=== PATIENT | male | born 1955 | race Caucasian/White ===

== ENCOUNTER 2017-01-19 11:17 | Emergency (ER) | payer BC ==
--- NOTE | 2017-01-19 11:25 | EDM.PDOC ---
ED HPI GENERAL MEDICAL PROBLEM - General Stated Complaint: CHEST PAIN Time Seen by Provider: 01/19/17 11:17 Source of Information: Reports: Patient, Family History Limitations: Reports: No Limitations - History of Present Illness INITIAL COMMENTS - FREE TEXT/NARRATIVE: 62 y.o.w.m with a h/o CAD, S/P Stent placements, was transfered to the ED from the clinic dueto sudden onset of SSCP, diaphoresis and dizziness. Pt tooke one Tbl of 0.4 mg of NTG and the symptoms subsided. Pt was still mildly dizzy as he arrived here in the ed. Onset: Today, Sudden Onset Date: 01/19/17 Onset Time: 07:00 Duration: Improving Location: Reports: Chest Quality: Reports: Pressure Severity: Mild Worsens with: Reports: None Context: Reports: Other (at rest) - Related Data Allergies Allergy/AdvReac Type Severity Reaction Status Date / Time No Known Allergies Allergy Verified 01/19/17 11:28 Home Meds: Home Meds Acetaminophen [Tylenol Arthritis] 650 mg PO Q8H PRN 01/19/17 [History] Albuterol Sulfate [Proair Hfa] 8.5 gm IH Q4H PRN 01/19/17 [History] Aspirin 81 mg PO DAILY 01/19/17 [History] Ciprofloxacin HCl [Cipro] 500 mg PO BID 01/19/17 [History] Clopidogrel [Plavix] 75 mg PO DAILY 01/19/17 [History] Fluticasone/Salmeterol [Advair Diskus 100-50] 1 puff INH BID PRN 01/19/17 [ History] Isosorbide Mononitrate [Imdur] 30 mg PO DAILY 01/19/17 [History] Losartan [Cozaar] 50 mg PO DAILY 01/19/17 [History] Metoprolol Succinate [Toprol XL] 12.5 mg PO DAILY 01/19/17 [History] Naproxen Sodium [Aleve] 440 mg PO Q12H PRN 01/19/17 [History] Nitroglycerin 0.4 mg SL .Q5 MIN PRN 01/19/17 [History] Ranitidine HCl [Zantac] 300 mg PO BID PRN 01/19/17 [History] Ubidecarenone [Co Q-10] 100 mg PO BEDTIME 01/19/17 [History] ED ROS GENERAL - Review of Systems Review Of Systems: See Below Constitutional: Reports: No Symptoms HEENT: Reports: No Symptoms Respiratory: Reports: No Symptoms Cardiovascular: Reports: No Symptoms Endocrine: Reports: No Symptoms GI/Abdominal: Reports: No Symptoms : Reports: No Symptoms Musculoskeletal: Reports: No Symptoms Skin: Reports: No Symptoms Neurological: Reports: No Symptoms Psychiatric: Reports: No Symptoms Hematologic/Lymphatic: Reports: No Symptoms Immunologic: Reports: No Symptoms ED EXAM, GENERAL - Physical Exam Exam: See Below Exam Limited By: No Limitations General Appearance: Alert, WD/WN, No Apparent Distress Eye Exam: Bilateral Eye: Normal Inspection Ears: Normal External Exam Ear Exam: Bilateral Ear: Auricle Normal Nose: Normal Inspection, Normal Mucosa Throat/Mouth: Normal Inspection, Normal Lips Head: Atraumatic, Normocephalic Neck: Normal Inspection, Supple, Non-Tender Respiratory/Chest: No Respiratory Distress, Lungs Clear, Normal Breath Sounds Cardiovascular: Normal Peripheral Pulses, Regular Rate, Rhythm, No Edema Peripheral Pulses: 1+: Brachial (R), Radial (L) GI/Abdominal: Normal Bowel Sounds, Soft, Non-Tender (Male) Exam: Deferred Rectal (Males) Exam: Deferred Back Exam: Normal Inspection, Full Range of Motion Extremities: Normal Inspection, Normal Range of Motion, Non-Tender, Normal Capillary Refill Neurological: Alert, Oriented, CN II-XII Intact, Normal Cognition, Normal Gait Psychiatric: Normal Affect, Normal Mood Skin Exam: Warm, Dry, Intact, Normal Color, No Rash Lymphatic: No Adenopathy EKG INTERPRETATION EKG Date: 01/19/17 Time: 11:00 Rhythm: NSR Rate (Beats/Min): 62 [place]: Normal P-Wave: Present QRS: Normal ST-T: Normal QT: Normal Comparison: NA - No Prior EKG Course - Vital Signs Text/Narrative:: 62 y.o.w.m with a h/o CAD, S/P Stent placements, was transfered to the ED from the clinic dueto sudden onset of SSCP, diaphoresis and dizziness. Pt tooke one Tbl of 0.4 mg of NTG and the symptoms subsided. Pt was still mildly dizzy as he arrived here in the ed. orthostatics were neg here in the ed. Pt is physically active at work, every day. PE: Mild epigastyric tenderness. Imaging: CXR NAD Labs: NAD, Troponin: Neg D Dimer neg 1209 Consultation: Dr. Noriega Slabber,[facility]: Stress test before discharge. Pt refused a stress test. Impression: Chest pain, atypical Reeaxm: Pt remained pain free, is in his usual state of health. Pt refused Cardiac stress test, refused Cardiac Labs in 4 hours. Plan: Requested to be D/C'd to home with . Last Recorded V/S: Last Vital Signs Temp 36.6 C 01/19/17 11:20 Pulse Resp 01/19/17 12:15 BP 136/69 01/19/17 12:15 Pulse Ox 97 01/19/17 12:15 - Orders/Labs/Meds Labs: Laboratory Tests 01/19/17 01/19/17 01/19/17 Range/Units 11:34 11:34 11:34 WBC 8.2 (4.5-12.0) X10-3/uL RBC 5.22 (4.30-5.75) x10(6)uL Hgb 15.2 (11.5-15.5) g/dL Hct 44.2 (30.0-51.3) % MCV 84.7 (80-96) fL MCH 29.1 (27.7-33.6) pg MCHC 34.3 (32.2-35.4) g/dL RDW 13.1 (11.5-15.5) % Plt Count 270 (125-369) X10(3)uL MPV 6.7 L (7.4-10.4) fL Neut % (Auto) 70.6 (46-82) % Lymph % (Auto) 21.8 (13-37) % [place] % (Auto) 6.4 (4-12) % Eos % (Auto) 1 (1.0-5.0) % Baso % (Auto) 1 (0-2) % Neut # (Auto) 5.8 (1.6-8.3) # Lymph # (Auto) 1.8 (0.6-5.0) # [place] # (Auto) 0.5 (0.0-1.3) # Eos # (Auto) 0.1 (0.0-0.8) # Baso # (Auto) 0.0 (0.0-0.2) # PT (8.7-11.1) INR (0.89-1.13) D-Dimer, Quantitative < 100 L (100-400) ng/mL Sodium 135 (135-145) mmol/L Potassium 4.1 (3.5-5.3) mmol/L Chloride 102 (100-110) mmol/L Carbon Dioxide 26 (23-29) mmol/L BUN 14 (8-23) mg/dL Creatinine 0.9 (0.6-1.3) mg/dL Est Cr Clr Drug Dosing TNP Estimated GFR (MDRD) > 60 (>60) BUN/Creatinine Ratio 15.6 (9-20) Glucose 107 (80-116) mg/dL Calcium 8.8 (8.6-10.2) mg/dL Creatine Kinase 154 (60-160) IU/L Troponin I (0.02-0.06) NG/ML 01/19/17 01/19/17 Range/Units 11:34 11:34 WBC (4.5-12.0) X10-3/uL RBC (4.30-5.75) x10(6)uL Hgb (11.5-15.5) g/dL Hct (30.0-51.3) % MCV (80-96) fL MCH (27.7-33.6) pg MCHC (32.2-35.4) g/dL RDW (11.5-15.5) % Plt Count (125-369) X10(3)uL MPV (7.4-10.4) fL Neut % (Auto) (46-82) % Lymph % (Auto) (13-37) % [place] % (Auto) (4-12) % Eos % (Auto) (1.0-5.0) % Baso % (Auto) (0-2) % Neut # (Auto) (1.6-8.3) # Lymph # (Auto) (0.6-5.0) # [place]oughton # (Auto) (0.0-1.3) # Eos # (Auto) (0.0-0.8) # Baso # (Auto) (0.0-0.2) # PT 10.6 (8.7-11.1) INR 1.05 (0.89-1.13) D-Dimer, Quantitative (100-400) ng/mL Sodium (135-145) mmol/L Potassium (3.5-5.3) mmol/L Chloride (100-110) mmol/L Carbon Dioxide (23-29) mmol/L BUN (8-23) mg/dL Creatinine (0.6-1.3) mg/dL Est Cr Clr Drug Dosing Estimated GFR (MDRD) (>60) BUN/Creatinine Ratio (9-20) Glucose (80-116) mg/dL Calcium (8.6-10.2) mg/dL Creatine Kinase (60-160) IU/L Troponin I < 0.01 L (0.02-0.06) NG/ML Departure - Departure Time of Disposition: 12:27 Disposition: Home, Self-Care 01 Condition: Good Clinical Impression: Atypical chest pain Referrals: Yogi Cash MD [Primary Care Provider] - Forms: ED Department Discharge Additional Instructions: Please cont your meds, f/u with your PMD, come bacl if your symptoms get worse acutely.
--- NOTE | 2017-01-19 11:55 | CR ---
INDICATION: Chest pain. CHEST: Two AP upright portable views of the chest were obtained 01/19/2017. Overlying EKG leads are noted. The heart is normal in size and shape. A definite active infiltrate or effusion was not identified. IMPRESSION: No acute process. MTDD
[2017-01-19 13:35] VITALS: BP 136/69
== END 2017-01-19 12:35 | disposition home or self-care (01) ==
LOC: FB.ED 11:17
DX: R07.89 Other chest pain (principal); I25.10 Atherosclerotic heart disease of native coronary artery without angina pectoris; Z79.82 Long term (current) use of aspirin; Z79.02 Long term (current) use of antithrombotics/antiplatelets; Z79.899 Other long term (current) drug therapy; Z95.5 Presence of coronary angioplasty implant and graft
CPT/HCPCS: 36415; 71010; 80048; 82550; 84484; 85025; 85379; 85610; 99285

== ENCOUNTER 2019-07-05 10:24 | Emergency (ER) | payer BC, OTHER ==
--- NOTE | 2019-07-05 10:48 | EDM.PDOC ---
ED HPI GENERAL MEDICAL PROBLEM - General Stated Complaint: CHEST PAINS Time Seen by Provider: 07/05/19 10:45 Source of Information: Reports: Patient History Limitations: Reports: No Limitations - History of Present Illness INITIAL COMMENTS - FREE TEXT/NARRATIVE: 64-year-old male who reports onset of left-sided chest pain which radiates through to his back and to his left arm causing tingling to his fingers which began on 06/30/2019. He reports that the pain is worse with breathing and with moving his arm and his neck the pain has been continually present since Tuesday but seems to wax and wane. At its worst it was a 9/10 at about 4: 30 to 5 AM this morning and it is currently a 7/10. It is a sharp pain there has been no nausea or vomiting associated with this. There has been no cough. No fevers or chills. No shortness of breath. No known injury. He reports that he saw a chiropractor initially and it did not seem to help. He was seen by Dr. Cash today in clinic and sent over here for further evaluation. He reports that he has been eating and drinking normally. He has had normal activity level. No syncope or presyncope. There are no other associated signs or symptoms. There are no other modifying factors. 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 Taken over-the- counter medication.) L chest, upper back radiating in to shoulder & arm Pain Score (Numeric/FACES): 6 - Related Data Allergies Allergy/AdvReac Type Severity Reaction Status Date / Time No Known Allergies Allergy Verified 07/05/19 10:44 Home Meds: Home Meds Acetaminophen [Tylenol Arthritis] 650 mg PO Q8H PRN 01/19/17 [History] Albuterol Sulfate [Proair Hfa] 8.5 gm IH Q4H PRN 01/19/17 [History] Aspirin 81 mg PO DAILY 01/19/17 [History] Clopidogrel [Plavix] 75 mg PO DAILY 01/19/17 [History] Fluticasone/Salmeterol [Advair Diskus 100-50] 1 puff INH BID PRN 01/19/17 [ History] Isosorbide Mononitrate [Imdur] 30 mg PO DAILY 01/19/17 [History] Losartan [Cozaar] 50 mg PO DAILY 01/19/17 [History] Metoprolol Succinate [Toprol XL] 12.5 mg PO DAILY 01/19/17 [History] Naproxen Sodium [Aleve] 440 mg PO Q12H PRN 01/19/17 [History] Nitroglycerin 0.4 mg SL .Q5 MIN PRN 01/19/17 [History] Ubidecarenone [Co Q-10] 100 mg PO BEDTIME 01/19/17 [History] Benzonatate 200 mg PO QAM PRN 07/05/19 [History] Cyclobenzaprine [Flexeril] 10 mg PO TID PRN #15 tab 07/05/19 [Rx] Pantoprazole Sodium [Protonix] 40 mg PO DAILY 07/05/19 [History] buPROPion HCl [Wellbutrin Xl] 150 mg PO DAILY 07/05/19 [History] guaiFENesin/Codeine Phosphate [Codeine-Guaifen 10-100 mg/5 ml] 5 ml PO PRN 07/05 [History] methylPREDNISolone [Medrol Dose Pack] 1 dose PO DAILY #1 dospk 07/05/19 [Rx] Past Medical History HEENT History: Reports: Impaired Vision, Other (See Below) Other HEENT History: wears glasses Cardiovascular History: Reports: Angina, CAD, Hypertension, Stents Respiratory History: Reports: COPD, Sleep Apnea Gastrointestinal History: Reports: GERD Musculoskeletal History: Reports: Other (See Below) Other Musculoskeletal History: degenerative disc disease - Past Surgical History HEENT Surgical History: Reports: Tonsillectomy Cardiovascular Surgical History: Reports: Coronary Artery Stent GI Surgical History: Reports: Appendectomy, EGD, Hernia, Inguinal, Other (See Below) Other GI Surgeries/Procedures: hemorrhoidectomy Neurological Surgical History: Reports: Lumbar Spine Musculoskeletal Surgical History: Reports: Carpal Tunnel, Other (See Below) Other Musculoskeletal Surgeries/Procedures:: knee surgery, cervical fusion C5-C7 Social & Family History - Tobacco Use Smoking Status *Q: Current Every Day Smoker - Caffeine Use Caffeine Use: Reports: Coffee, Soda - Alcohol Use Alcohol Use History: Yes Alcohol Use Frequency: Weekly (3-4 times a week) - Living Situation & Occupation Living situation: Reports: Occupation: Employed (owns his own [employer] business) ED ROS GENERAL - Review of Systems Review Of Systems: See Below Constitutional: Reports: No Symptoms HEENT: Reports: No Symptoms Respiratory: Reports: Pleuritic Chest Pain Cardiovascular: Reports: Chest Pain GI/Abdominal: Reports: No Symptoms : Reports: No Symptoms Musculoskeletal: Reports: Neck Pain, Arm Pain (Tingling in his left hand), Back Pain (Left upper back and posterior chest) Skin: Reports: No Symptoms Neurological: Reports: No Symptoms Hematologic/Lymphatic: Reports: No Symptoms Immunologic: Reports: No Symptoms ED EXAM, GENERAL - Physical Exam Exam: See Below Exam Limited By: No Limitations General Appearance: Alert, WD/WN, Moderate Distress (Appears in some pain) Eye Exam: Bilateral Eye: EOMI, Normal Inspection Ears: Normal External Exam, Hearing Grossly Normal Ear Exam: Bilateral Ear: Auricle Normal Nose: Normal Inspection, Normal Mucosa, No Blood Throat/Mouth: Normal Inspection, Normal Oropharynx, Normal Voice, No Airway Compromise Head: Atraumatic, Normocephalic Neck: Normal Inspection, Supple, Non-Tender, Full Range of Motion Respiratory/Chest: No Respiratory Distress, Lungs Clear, Normal Breath Sounds, No Accessory Muscle Use, Other (Tender over her left lateral chest) Cardiovascular: Normal Peripheral Pulses, Regular Rate, Rhythm, No JVD, No Murmur Peripheral Pulses: 2+: Radial (L), Radial (R) GI/Abdominal: Normal Bowel Sounds, Soft, Non-Tender, No Mass Back Exam: Full Range of Motion, Other (Tender over the left upper, medial back with palpation.) Extremities: Normal Inspection, Normal Range of Motion, Non-Tender, No Pedal Edema, Normal Capillary Refill Neurological: Alert, Oriented, CN II-XII Intact, Normal Cognition, No Motor/ Sensory Deficits Skin Exam: Warm, Dry, Intact, Normal Color, No Rash EKG INTERPRETATION EKG Date: 07/05/19 Time: 10:30 Rhythm: NSR Rate (Beats/Min): 55 Valliant: LAD-Left Valliant Deviation (Left anterior fascicular block) P-Wave: Present QRS: Other (Poor R-wave progression) ST-T: Other (Nonspecific ST-T changes) QT: Normal Comparison: No Change (No change from EKG performed on 08/26/2018 at the [facility] in [place]) Course - Vital Signs Last Recorded V/S: Last Vital Signs Temp 36.4 C 07/05/19 10:25 Pulse 54 L 07/05/19 10:25 Resp 20 07/05/19 10:25 BP 185/86 H 07/05/19 10:25 Pulse Ox 97 07/05/19 10:25 - Orders/Labs/Meds Orders: Active Orders 24 hr Category Date Time Status EKG Documentation Completion [RC] ASDIRECTED Care 07/05/19 11:00 Active Chest 1V Frontal [CR] Stat Exams 07/05/19 10:59 Taken Sodium Chloride 0.9% [Saline Flush] Med 07/05/19 11:01 Active 10 ml FLUSH ASDIRECTED PRN Peripheral IV Insertion Adult [OM.PC] Routine Oth 07/05/19 11:01 Ordered EKG 12 Lead [EK] Routine Ther 07/05/19 10:59 Ordered Medication Orders Sodium Chloride (Saline Flush) 10 ml FLUSH ASDIRECTED PRN PRN Reason: Keep Vein Open Last Admin: 07/05/19 10:35 Dose: 10 ml Labs: Laboratory Tests 07/05/19 07/05/19 07/05/19 Range/Units 10:35 10:35 10:35 WBC 10.7 (4.5-12.0) X10-3/uL RBC 5.43 (4.30-5.75) x10(6)uL Hgb 16.1 (13.5-17.8) g/dL Hct 46.3 (30.0-51.3) % MCV 85.3 (80-96) fL MCH 29.7 (27.7-33.6) pg MCHC 34.8 (32.2-35.4) g/dL RDW 12.3 (11.5-15.5) % Plt Count 285 (125-369) X10(3)uL MPV 6.7 L (7.4-10.4) fL Neut % (Auto) 75.7 (46-82) % Lymph % (Auto) 15.9 (13-37) % Garza % (Auto) 6.6 (4-12) % Eos % (Auto) 1 (1.0-5.0) % Baso % (Auto) 1 (0-2) % Neut # (Auto) 8.1 (1.6-8.3) # Lymph # (Auto) 1.7 (0.6-5.0) # Garza # (Auto) 0.7 (0.0-1.3) # Eos # (Auto) 0.1 (0.0-0.8) # Baso # (Auto) 0.1 (0.0-0.2) # PT 9.9 (8.7-11.1) INR 1.02 (0.89-1.13) APTT 24.8 (24.4-33.2) SECONDS D-Dimer, Quantitative 0.33 (0.0-0.59) mg/LFEU Sodium 140 (135-145) mmol/L Potassium 4.0 (3.5-5.3) mmol/L Chloride 102 (100-110) mmol/L Carbon Dioxide 31 (21-32) mmol/L BUN 22 H (7-18) mg/dL Creatinine 1.2 (0.70-1.30) mg/dL Est Cr Clr Drug Dosing 74.21 mL/min Estimated GFR (MDRD) > 60 (>60) BUN/Creatinine Ratio 18.3 (9-20) Glucose 89 (80-116) mg/dL Calcium 8.8 (8.6-10.2) mg/dL Magnesium (1.8-2.5) mg/dL Total Bilirubin 0.6 (0.1-1.3) mg/dL AST 23 (5-25) IU/L ALT 33 (12-36) U/L Alkaline Phosphatase 85 (56-112) IU/L Troponin I (4.0-60.3) pg/mL Total Protein 7.5 (6.0-8.0) g/dL Albumin 4.1 (3.2-4.6) g/dL Globulin 3.4 g/dL Albumin/Globulin Ratio 1.2 07/05/19 07/05/19 Range/Units 10:35 10:35 WBC (4.5-12.0) X10-3/uL RBC (4.30-5.75) x10(6)uL Hgb (13.5-17.8) g/dL Hct (30.0-51.3) % MCV (80-96) fL MCH (27.7-33.6) pg MCHC (32.2-35.4) g/dL RDW (11.5-15.5) % Plt Count (125-369) X10(3)uL MPV (7.4-10.4) fL Neut % (Auto) (46-82) % Lymph % (Auto) (13-37) % Garza % (Auto) (4-12) % Eos % (Auto) (1.0-5.0) % Baso % (Auto) (0-2) % Neut # (Auto) (1.6-8.3) # Lymph # (Auto) (0.6-5.0) # Garza # (Auto) (0.0-1.3) # Eos # (Auto) (0.0-0.8) # Baso # (Auto) (0.0-0.2) # PT (8.7-11.1) INR (0.89-1.13) APTT (24.4-33.2) SECONDS D-Dimer, Quantitative (0.0-0.59) mg/LFEU Sodium (135-145) mmol/L Potassium (3.5-5.3) mmol/L Chloride (100-110) mmol/L Carbon Dioxide (21-32) mmol/L BUN (7-18) mg/dL Creatinine (0.70-1.30) mg/dL Est Cr Clr Drug Dosing mL/min Estimated GFR (MDRD) (>60) BUN/Creatinine Ratio (9-20) Glucose (80-116) mg/dL Calcium (8.6-10.2) mg/dL Magnesium 1.6 L (1.8-2.5) mg/dL Total Bilirubin (0.1-1.3) mg/dL AST (5-25) IU/L ALT (12-36) U/L Alkaline Phosphatase (56-112) IU/L Troponin I 6.5 (4.0-60.3) pg/mL Total Protein (6.0-8.0) g/dL Albumin (3.2-4.6) g/dL Globulin g/dL Albumin/Globulin Ratio Meds: Medications Generic Name Dose Route Start Last Admin Trade Name Jimmy PRN Reason Stop Dose Admin Sodium Chloride 10 ml 07/05/19 11:01 07/05/19 10:35 Saline Flush FLUSH 10 ml ASDIRECTED PRN Administration Keep Vein Open Discontinued Medications Generic Name Dose Route Start Last Admin Trade Name Jimmy PRN Reason Stop Dose Admin Aspirin 324 mg 07/05/19 11:01 07/05/19 10:50 Aspirin PO 07/05/19 11:02 324 mg ONETIME ONE Administration Ketorolac Tromethamine 30 mg 07/05/19 11:23 07/05/19 11:26 Toradol IVPUSH 07/05/19 11:24 30 mg ONETIME ONE Administration - Radiology Interpretation Free Text/Narrative:: Portable chest x-ray shows no acute disease. - Re-Assessments/Exams Free Text/Narrative Re-Assessment/Exam: 07/05/19 12:00: Patient's troponin was normal. He has had continual pain in his left chest and upper back and left arm since 06/30/2019. With a normal troponin, MIs been ruled out and cardiac etiology is unlikely. With a normal d-dimer, PE also has been essentially ruled out. His chest x-ray shows no evidence of pneumothorax or pneumonia. This appears to be musculoskeletal in origin. It could be a myofascial strain or it could also be a disc problem in his neck. I will place the patient on a Medrol Dosepak for treatment of this. I will also give the patient a prescription of Flexeril that he can use at night for his muscle pain and muscle spasm. He will need to follow-up with Dr. Cash if he is having continuing problems. Departure - Departure Time of Disposition: 12:15 Disposition: Home, Self-Care 01 Condition: Good Clinical Impression: Musculoskeletal chest pain, Myofascial pain on left side Prescriptions: Cyclobenzaprine [Flexeril] 10 mg PO TID PRN #15 tab PRN Reason: Muscular pain/muscular spasm methylPREDNISolone [Medrol Dose Pack] 1 dose PO DAILY #1 dospk Instructions: Nonspecific Chest Pain, [id number], Musculoskeletal Pain Referrals: PCP,None [Ordering Only Provider] - Additional Instructions: Your blood tests were reassuringly normal. Specifically your heart enzyme test was normal and this rules out a heart attack. You're blood clot screening test was negative as well and this rules out any blood clots. Your chest x-ray was also normal. This rules out pneumonia and collapse of your lung. This appears to be either a pulled muscle in your back or a problem with a disc in your neck. We did discuss the possibility of a torn artery in your chest. I think it is unlikely that this is the case as you blood tests and chest x-ray do not point toward this but we would have to do another test to completely rule this out. You have elected to wait and not do this test at that time. Medication as prescribed (Medrol Dosepak, Flexeril). Follow-up with Dr. Cash if your symptoms are not improving. Back to the emergency department for increasing pain , trouble breathing, weakness, vomiting or any other concerning sign or symptom. Sepsis Event Note - Focused Exam Vital Signs: Vital Signs Temp Pulse Resp BP Pulse Ox 07/05/19 10:25 36.4 C 54 L 20 185/86 H 97 Date Exam was Performed: 07/05/19 Time Exam was Performed: 12:11 - My Orders Last 24 Hours: My Active Orders 07/05/19 10:59 Chest 1V Frontal [CR] Stat EKG 12 Lead [EK] Routine 07/05/19 11:00 EKG Documentation Completion [RC] ASDIRECTED 07/05/19 11:01 Sodium Chloride 0.9% [Saline Flush] 10 ml FLUSH ASDIRECTED PRN Peripheral IV Insertion Adult [OM.PC] Routine - Assessment/Plan Last 24 Hours: My Active Orders 07/05/19 10:59 Chest 1V Frontal [CR] Stat EKG 12 Lead [EK] Routine 07/05/19 11:00 EKG Documentation Completion [RC] ASDIRECTED 07/05/19 11:01 Sodium Chloride 0.9% [Saline Flush] 10 ml FLUSH ASDIRECTED PRN Peripheral IV Insertion Adult [OM.PC] Routine
[2019-07-05] MEDS ORDERED: Sodium Chloride 0.9% 10 ML Syringe FLUSH PRN (11:01)
[2019-07-05] MEDS ORDERED: Aspirin 81 MG Tab.Chew PO ONE (11:01)
[2019-07-05] MEDS ORDERED: Ketorolac 30 MG/ML SDV IVPUSH ONE (11:23)
[2019-07-05 12:56] VITALS: BP 177/87; PULSE 52
--- NOTE | 2019-07-05 19:49 | CR ---
INDICATION: Chest pain. CHEST, ONE VIEW: Portable AP upright view of the chest 07/05/19 was compared with 01/19/17 with 2 images. The heart appears to be at the upper limits of normal in size and perhaps slightly increased in size compared with the previous study. Overlying EKG leads are noted. An active infiltrate or effusion was not identified. Relatively flattened diaphragm leaves suggest progressive COPD. IMPRESSION: 1. No definite acute process. 2. Probable ASHD - heart size is slightly increased. 3. Possible progressive COPD. MTDD
== END 2019-07-05 12:40 | disposition home or self-care (01) ==
LOC: FB.ED 10:24
DX: R07.89 Other chest pain (principal); M79.18 Myalgia, other site; I25.10 Atherosclerotic heart disease of native coronary artery without angina pectoris; I10 Essential (primary) hypertension; J44.9 Chronic obstructive pulmonary disease, unspecified; K21.9 Gastro-esophageal reflux disease without esophagitis; F17.200 Nicotine dependence, unspecified, uncomplicated; Z79.82 Long term (current) use of aspirin; Z95.5 Presence of coronary angioplasty implant and graft; Z79.51 Long term (current) use of inhaled steroids; Z79.899 Other long term (current) drug therapy; Z79.02 Long term (current) use of antithrombotics/antiplatelets
CPT/HCPCS: 36415; 71045; 80053; 83735; 84484; 85025; 85379; 85610; 85730; 93005; 96374; 99285-25; A9270-GY; J1885